=== PATIENT | female | born 1990 | race Two or more races ===

== ENCOUNTER 2023-09-29 01:24 | Emergency (ER) | payer BC ==
[~2023-09-29] VITALS: Ht 182.9 cm; Wt 79.4 kg
[2023-09-29] MEDS ORDERED: KETO10TA2 PO (04:22)
[2023-09-29] MEDS ORDERED: 8 HOUR650 MG PO (04:22)
[2023-09-29] MEDS ORDERED: MEDROLPACK PO (04:22)
== END 2023-09-29 10:09 | disposition home or self-care (01) ==
LOC: ER 01:24
DX: S82.251A Displaced comminuted fracture of shaft of right tibia, initial encounter for closed fracture (principal); W05.2XXA Fall from non-moving motorized mobility scooter, initial encounter; Y93.89 Activity, other specified; Y92.89 Other specified places as the place of occurrence of the external cause; Y99.9 Unspecified external cause status